=== PATIENT | female | born 1945 | race Caucasian/White ===

== ENCOUNTER → 2016-07-19 | Outpatient (CLI) | payer OTHER, MEDICARE ==
[~2016-07-19] MED LIST: ADULT LOW DOSE81 MG PO; ALAVERT10 MG PO; BIOTIN1 MG PO; CALCIUM CITRAT250 MG PO; CENTRUM SILVER1 EAC4 PO; CLARITIN10 MG PO; CO Q-10100 MG PO; COLACE100 MG PO; ENALAPRIL-HCTZ1 EACH PO; FISH OIL 1,001000 M2 PO; FISHOIL PO; FLAGYL500 MG PO; GABAPENTIN600 M1 PO; LEVOTHYROXIN0.088 MG PO; LOPRESSOR25 PO; METRONIDAZOLE45 G1 TOP; NAPROXEN 220 M220 M1 PO; NEPHROCAPS SOFT1 CAP PO; NORTRIPTYLINE H75 M1 PO; PROBIOTIC1 EAC6 PO; PROTONIX40 M1 PO; PROZAC10 MG PO; SENNA8.6 MG PO; ULTRAM 50MG TAB50 MG PO; VENTOLIN HFA 1818 GM INH; VITAMIN C100 M1 PO; VITAMIN D1000 UNI1 PO
== END ==
LOC: RAD 03:17
DX: R92.8 Other abnormal and inconclusive findings on diagnostic imaging of breast (principal)

== ENCOUNTER 2016-12-10 05:25 | Inpatient (IN) | payer OTHER, MEDICARE ==
[~2016-12-10] VITALS: Ht 162.6 cm; Wt 84.8 kg
--- NOTE | ~2016-12-10 | EKG ---
[address] [place] [address] ELECTROCARDIOGRAM REPORT Name: AARON BRUNO Room #: 238-[facility] IN M.R.#: [id number] Admission: 12/11/16 Attend Phys: Smitha Maldonado Discharge: Date of : 43 Report #: [id number] THIS REPORT FOR: //name// [facility] Test Date: 2016-12-11 Test Time: 09:29:28 Pat Name: AARON BRUNO Department: Room: 238 Gender: F Senior Software Systems Engineer: YURI : 1945 Requested By: Smitha Maldonado Order Number: [id number] MD: Wolfgang Hoang Measurements Intervals [place] Rate: 88 P: 80 NH: 183 QRS: 44 QRSD: 95 T: 23 QT: 375 QTc: 454 Interpretive Statements Sinus rhythm Nonspecific ST segment abnormality Compared to ECG 12/29/2015 10:15:02 No significant changes Electronically Signed On 12-12-2016 8:06:31 CDT by Wolfgang Hoang [email or web address] <ELECTRONICALLY SIGNED> By: Wolfgang Hoang MD, [facility] 12/12/16 0806 8 8 Wolfgang Hoang MD, [facility] /EPI
--- NOTE | ~2016-12-10 | 2DMMODE ---
[facility] [place] [address] 2 D/M-MODE ECHOCARDIOGRAM Name: AARON BRUNO S Room #: 238-P [facility] IN .R.#: [id number] Admission: 12/11/16 Attend Phys: Smitha Morales Discharge: Date of : 43 Date of Service: 12/11/16 1252 Report #: [id number] THIS REPORT FOR: //name// APPROVED REPORT Study performed: 12/11/2016 11:00:29 EXAM: Comprehensive 2D, Doppler, and color-flow Echocardiogram Patient Location: ICU Room #: 238 Status: routine BSA: 1.87 HR: 78 bpm BP: 134/45 mmHg Other Information Study Quality: Fair Indications Syncope Aortic Valve AoV Peak Davi.: 1.13 m/s AO Peak Gr.: 5.09 mmHg LVOT Max P.41 mmHg LVOT Max V: 0.92 m/s Mitral Valve E/A Ratio: 0.8 MV Decel. Time: 179.13 ms MV E Max Davi.: 0.68 m/s MV A Davi.: 0.84 m/s MV PHT: 51.95 ms IVRT: 110.73 ms Pulmonary Vein P Vein S: 0.64 m/s P Vein A: 0.28 m/s P Vein D: 0.39 m/s P Vein A Dur.: 120.0 msec P Vein S/D Ratio: 1.64 Left Ventricle The left ventricle is normal size. There is normal left ventricular wall thickness. The overall left ventricular systolic function appears normal. LVEF is 60-65%. Grade I - abnormal relaxation pattern. [facility] [address] [place] [address] 2 D/M-MODE ECHOCARDIOGRAM Name: AARON BRUNO Room #: 238-P [facility] IN [facility]#: [id number] Admission: 12/11/16 Attend Phys: Smitha Morales Discharge: Date of : 43 Date of Service: 12/11/16 1252 Report #: [id number] Right Ventricle The right ventricle is normal size. The right ventricular systolic function is normal. Atria The left atrium size is normal. The right atrium size is normal. Aortic Valve Aortic valve is not well visualized. No aortic regurgitation is present. There is no aortic valvular stenosis. Mitral Valve The mitral valve is normal in structure. There is no mitral valve regurgitation noted. No evidence of mitral valve stenosis. Tricuspid Valve The tricuspid valve is normal in structure. There is no tricuspid valve regurgitation noted. Pulmonic Valve Pulmonic valve is not visualized. Great Vessels Aortic root is not well visualized. IVC is normal in size and collapses >50% with inspiration. Pericardium There is no pericardial effusion. <Conclusion> The left ventricle is normal size. LVEF is 60-65%. The left atrium size is normal. Aortic valve is not well visualized. The mitral valve is normal in structure. The tricuspid valve is normal in structure. Pulmonic valve is not visualized. <ELECTRONICALLY SIGNED> By: Gee Fuentes MD 12/11/16 1252 1252 1252 Gee Fuentes MD /INF
--- NOTE | ~2016-12-10 | S ---
[facility] [place] [address] [place] [address] SURGICAL PATH RPT PROCEDURE Name: CORINNA BRUNO Room #: 238-P [facility] IN M.R.#: [id number] Admission: 12/11/16 Date of : 43 Discharge: 12/12/16 Report #: [id number] Path Case #: [id number] PATHOLOGY REPORT COLLECTION DATE: 12/10/2016 RECEIVED DATE: 12/11/2016 SUBMITTING PHYS: Dr. Lam Dickens OTHER PHYS: Dr. Radha Pritchett SPECIMEN(S) RECEIVED: A.Left mastectomy * * * * * * * * * * * * FINAL DIAGNOSIS: "Left mastectomy," mastectomy: - Benign breast tissue with fibrocystic changes including stromal fibrosis, small cyst formation, focal columnar cell hyperplasia and adenosis with rare microcalcifications present; no cytologic atypia or malignancy seen. - Lymph nodes (2) with hyperplasia; no evidence of metastatic carcinoma (2 nodes). 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 (CLW:; 12/12/2016) PATHOLOGIST: Bobbi Crews M.D. REPORT ELECTRONICALLY SIGNED BY: Bobbi Crews M.D. DATE/TIME: 12/12/2016 22:40 * * * * * * * * * * * * GROSS PATHOLOGY: The specimen is received fresh from the OR, labeled "Corinna Bruno and left mastectomy-long suture marked tail of Evelio". It consists of a 620.0-gram oriented mastectomy specimen measuring 15 cm from superior to inferior x 20.5 cm from medial to lateral x 4.0 cm from anterior/superficial to posterior/deep. The anterior surface is covered by an ellipse of hand-white skin measuring 15 x 7 cm. The skin contains a nipple areolar complex measuring 3 cm in diameter. The inverted nipple measures 1 cm in diameter. The margins are inked as follows: superior-blue, inferior-orange, and [facility] [address] [place] [address] SURGICAL PATH RPT PROCEDURE Name: CORINNA BRUNO Room #: 238-P [facility] IN [facility].#: [id number] Admission: 12/11/16 Date of : 43 Discharge: 12/12/16 Report #: [id number] Path Case #: [id number] posterior/deep-black. The specimen is serially sectioned and fixed in formalin. Reported time out of body is 1427 on 12/10/2016. Time placed in formalin is 1443 on 12/10/2016. (CLW:dominic; 12/10/2016) After fixation additional sectioning is performed. The cut surface is 70% hand-yellow lobulated adipose tissue and 30% morales-white fibrous breast parenchyma. No distinct abnormalities are noted. In the upper outer quadrant two possible lymph nodes are noted measuring 0.8 and 1.1 cm in greatest dimension. No additional abnormalities are identified. Senior Master Scheduler sections are submitted as follows: A1 - nipple A2-A3 - upper inner quadrant A4-A5 - lower inner quadrant A6-A7 - lower outer quadrant A8-A9 - upper outer quadrant A10 - one axillary nodule/lymph node trisected A11 - one axillary nodule/lymph node bisected (JWP; 12/11/2016) INTRAOPERATIVE CONSULTATION (Dr. Bobbi Crews) "Left mastectomy": - 620 gram mastectomy specimen received after history discussed; specimen inked and fixed in formalin. Testing performed by [employer] at [facility] [address] [place] [address] (CLW:dominic; 12/10/2016) CLINICAL HISTORY: Carcinoma right breast, previous right mastectomy, increased risk on left. Per Dr. Dickens, prophylactic only, no previous biopsies and no suspicious areas clinically or radiographically. INITIAL CPT CODE(S): 37271, 24692 Professional services performed by [employer] at [facility] [address] [place] [address] Technical services performed by [employer] at [address] [place] [address], [address], [place] [address]. [facility] [place] [address] SURGICAL PATH RPT PROCEDURE Name: CORINNA BRUNO Room #: 238-P [facility] IN M.R.#: [id number] Admission: 12/11/16 Date of : 43 Discharge: 12/12/16 Report #: [id number] Path Case #: [id number] [address] PHONE: [phone] DIRECTOR: Javy Huerta M.D. * * * END OF REPORT * * *
--- NOTE | ~2016-12-10 | H ---
[facility] [place] [address] [place] [address] HISTORY AND PHYSICAL Name: AARON BRUNO Room #: 409-P [facility]#: [id number] Admission: 12/10/16 Attend Phys: Lam Dickens MD Discharge: Date of : 43 Report #: [id number] THIS REPORT FOR: //name// CC: Radha Bowser MD DATE OF SERVICE: 12/10/2016 DATE OF SERVICE: 12/10/2016 PREOPERATIVE DIAGNOSIS: Carcinoma, right breast, previous right mastectomy, increased risk on left. POSTOPERATIVE DIAGNOSIS: Carcinoma, right breast, previous right mastectomy, increased risk on left, final pathology pending. OPERATION: Left total mastectomy. ATTENDING PHYSICIAN: Lam Dickens MD. ALLERGIES: General. DESCRIPTION OF PROCEDURE: Under satisfactory general anesthesia and with the patient in the supine position, the upper abdomen, left chest, left breast and left axilla were widely prepped with ChloraPrep solution and sterile drapes were applied. A transverse slightly oblique elliptical incision was made in order to fully encompass the left breast. Skin flaps were developed using electrocautery. A left total mastectomy was performed, removing the entire breast together with the pectoralis fascia and the tail of Fraser. The specimen was marked with sutures for orientation purposes and then was given directly to the pathologist. The skin flaps appeared excellent. Hemostasis was carefully obtained using electrocautery. Care was taken to avoid injury to the neurovascular structures. Palpation of the axilla revealed no suspicious lymph nodes. The wound was irrigated with saline. The sponge, instrument and needle counts were reported as correct. A 19-Luxembourgish round suction catheter was left under the skin flaps and this was brought out through a separate stab wound. The incision was closed in layers using interrupted 3-0 Vicryl for the subcutaneous layer and running 4-0 PDS for the subcuticular layer. [facility] [address] [place] [address] HISTORY AND PHYSICAL Name: AARON BRUNO Room #: 409-P [facility]#: [id number] Admission: 12/10/16 Attend Phys: Lam Dickens MD Discharge: Date of : 43 Report #: [id number] dressings were applied and the patient was taken to recovery in satisfactory condition. Estimated blood loss was less than 10 mL. <ELECTRONICALLY SIGNED> By: Lam Dickens MD 12/11/16 0658 1451 1530 Lam Dickens MD /nt
[~2016-12-10 05:25] MED LIST changes: +ALLEGRA ALLERG180 MG PO; +HAIR, SKIN & N1 EAC3 PO; +NAPROSYN500 MG PO
[2016-12-10 13:14] LABS: HEMATOCRIT 37.4 % (37.0-47.0); HEMOGLOBIN 12.6 gm/dL (12.0-15.0); MCH 30.5 pg (26.0-34.0); MCHC 33.7 g/dL (28.0-37.0); MCV 90.6 fL (80.0-100.0); RBC 4.12 mil/uL (4.20-5.00); RDW 14.5 % (10.5-14.5); WBC 8.8 thou/uL (4.0-11.0)
[2016-12-10 13:21] LABS: CALCIUM 9.4 mg/dL (8.5-10.1); CREATININE 0.9 mg/dL (0.6-1.0)
[2016-12-10 13:27] LABS: ALBUMIN 3.6 g/dL (3.4-5.0); TOTAL BILIRUBIN 0.5 mg/dL (<0.1-1.0); TOTAL PROTEIN 7.8 g/dL (6.4-8.2)
[2016-12-10 13:40] VITALS: BP 143/67
[2016-12-10 20:00] VITALS: BP 143/80
[2016-12-10 21:00] VITALS: BP 127/66
[2016-12-10 22:00] VITALS: BP 139/57
[2016-12-10 23:53] VITALS: BP 116/53
[2016-12-11] VITALS (20 sets, daily range): BP systolic 103–149; BP diastolic 39–67
[2016-12-11 09:40] LABS: HEMATOCRIT 32.4 % (37.0-47.0)
[2016-12-11 09:44] LABS: ABG SAMPLE TYPE ARTERIAL; BE(vivo) -2.3 mmol/L (-2 to +3); HCO3 22.2 mmol/L (22.0-26.0); LACTATE 2.95 mmol/L (0.5-2.0); O2(CT) 14.2 mL/dL (15.0-23.0); O2Hb 93.2 % (92.0-98.0); PCO2 36.7 mmHg (35.0-45.0); PO2 70.5 mmHg (80.0-100.0); pH 7.399 (7.360-7.450); sO2 94.3 % (92.0-98.0); tCO2 23.3 mmol/L (24.0-30.0)
[2016-12-11 09:45] LABS: STICK SITE L.RADIAL
[2016-12-11 09:51] LABS: ANION GAP 9 mmol/L (7-16); BUN 13 mg/dL (7-18); CHLORIDE 99 mmol/L (98-107); CO2 24 mmol/L (21-32); CREATININE 1.1 mg/dL (0.6-1.0); GLUCOSE 145 mg/dL (74-106); POTASSIUM 4.2 mmol/L (3.5-5.1); SODIUM 132 mmol/L (136-145)
[2016-12-11 10:01] LABS: MAGNESIUM 1.9 mg/dL (1.8-2.4); TROPONIN-I < 0.04 ng/mL (<0.04-0.07)
[2016-12-12] VITALS (21 sets, daily range): BP systolic 104–168; BP diastolic 38–101
[2016-12-12 04:22] LABS: ABSOLUTE NEUTROPHILS 7.4 thou/uL (1.4-8.2); BASOPHILS 0.5 % (0.0-2.0); EOSINOPHILS 1.4 % (0.0-3.0); HEMATOCRIT 25.9 % (37.0-47.0); LYMPHOCYTES 32.1 % (24.0-44.0); MCH 30.4 pg (26.0-34.0); MCHC 33.4 g/dL (28.0-37.0); MONOCYTES 7.9 % (1.0-8.0); PLATELET COUNT 279 thou/uL (150-400); POLYS 58.1 % (36.0-66.0); RBC 2.84 mil/uL (4.20-5.00); RDW 14.6 % (10.5-14.5); WBC 12.8 thou/uL (4.0-11.0)
[2016-12-12 04:34] LABS: HEMOGLOBIN 8.7 gm/dL (12.0-15.0); MANUAL DIFF NO
[2016-12-12 05:00] LABS: ALBUMIN 2.6 g/dL (3.4-5.0); ALKALINE PHOSPHATASE 57 U/L (46-116); ANION GAP 5 mmol/L (7-16); BUN 12 mg/dL (7-18); CALCIUM 8.3 mg/dL (8.5-10.1); CHLORIDE 102 mmol/L (98-107); CO2 28 mmol/L (21-32); CREATININE 0.8 mg/dL (0.6-1.0); GLUCOSE 92 mg/dL (74-106); POTASSIUM 3.8 mmol/L (3.5-5.1); SGOT 16 U/L (15-37); SGPT 16 U/L (30-65); SODIUM 135 mmol/L (136-145); TOTAL BILIRUBIN 0.2 mg/dL (<0.1-1.0); TOTAL PROTEIN 5.9 g/dL (6.4-8.2); TROPONIN-I < 0.04 ng/mL (<0.04-0.07)
[2016-12-12] MEDS ORDERED: IRON325 PO (10:19)
[2016-12-12 12:24] LABS: HEMATOCRIT 25.4 % (37.0-47.0); HEMOGLOBIN 8.6 gm/dL (12.0-15.0); MCH 31.1 pg (26.0-34.0); MCV 91.4 fL (80.0-100.0); RBC 2.78 mil/uL (4.20-5.00); RDW 14.4 % (10.5-14.5); WBC 11.8 thou/uL (4.0-11.0)
== END 2016-12-12 15:45 | disposition home or self-care (01) | DRG 582 ==
LOC: TBA 05:25 → OR 05:25 → TBA 05:26 → OR 15:30 → 4N 16:35 → OR 12-11 10:41 → ICU 12-11 10:43
PROVIDERS: Hospitalist; Specialist
PROC: 0HBU0ZZ Excision of Left Breast, Open Approach (ICD-10-PCS; principal; 2016-12-11)
DX: Z40.01 Encounter for prophylactic removal of breast (principal); E43 Unspecified severe protein-calorie malnutrition; C50.911 Malignant neoplasm of unspecified site of right female breast; D62 Acute posthemorrhagic anemia; R55 Syncope and collapse; E78.1 Pure hyperglyceridemia; E78.5 Hyperlipidemia, unspecified; I10 Essential (primary) hypertension; K21.9 Gastro-esophageal reflux disease without esophagitis; J45.909 Unspecified asthma, uncomplicated; E03.9 Hypothyroidism, unspecified; E66.9 Obesity, unspecified; E86.0 Dehydration; F32.9 Major depressive disorder, single episode, unspecified; R29.6 Repeated falls; D24.2 Benign neoplasm of left breast; I49.9 Cardiac arrhythmia, unspecified; Z68.32 Body mass index [BMI] 32.0-32.9, adult; Z90.11 Acquired absence of right breast and nipple; Z85.828 Personal history of other malignant neoplasm of skin; Z79.899 Other long term (current) drug therapy; Z88.1 Allergy status to other antibiotic agents; Z91.013 Allergy to seafood; Z88.8 Allergy status to other drugs, medicaments and biological substances; Z79.82 Long term (current) use of aspirin; Z87.01 Personal history of pneumonia (recurrent); Z87.81 Personal history of (healed) traumatic fracture
CPT/HCPCS: 10078; 50010; 50101; 50331; 50386; 50403; 52190; 56524; 56526; 62110; 62900; 70005

== ENCOUNTER → 2019-12-24 | Outpatient (CLI) | payer OTHER, MEDICARE ==
[~2019-12-24] MED LIST changes: +IRON325 PO
== END ==
LOC: LAB 14:49
PROVIDERS: ATTEND Anesthesiology
DX: Z01.812 Encounter for preprocedural laboratory examination (principal); Z20.828 Contact with and (suspected) exposure to other viral communicable diseases